=== PATIENT | female | born 1995 | race African-American/Black ===

== ENCOUNTER 2018-06-20 19:56 | Emergency (ER) | payer MEDICAID ==
--- NOTE | 2018-06-20 20:35 | ED Physician Chart ---
ED Chief Complaint/HPI - Patient Information Date Seen:: 06/20/18 Time Seen:: 20:15 Chief Complaint:: scalp lesions History of Present Illness:: Patient's had tender, painful scalp for the last 1 week. Last night the left parietal scalp was bleeding. She's had a pounding headache since yesterday. Patient has been using Stallion shampoo for the last 1 year. Allergies:: Allergies Allergy/AdvReac Type Severity Reaction Status Date / Time No Known Allergies Allergy Verified 06/20/18 20:17 Vitals:: Vital Signs - 8 hr 06/20/18 20:17 Temp 98.3 F HR 99 RR 18 BP 136/80 O2 Sat % 97 Historian:: Patient Review:: Nurse's Note Reviewed ED Review of Systems - Review of Systems General/Constitutional: No fever, No chills Skin: Skin lesions Head: No headache Eyes: No loss of vision ENT: No earache Neck: No neck pain Cardio Vascular: No chest pain, No palpitations Pulmonary: No SOB GI: No nausea, No vomiting, No diarrhea G/U: No dysuria Musculoskeletal: No bone or joint pain Endocrine: No polyuria Psychiatric: No prior psych history Hematopoietic: No bruising Allergic/Immuno: No urticaria Neurological: No syncope ED Past Medical History - Past Medical History Past Medical History: No significant medical hx Family History: None Social History: Non Smoker, No Alcohol Surgical History: other (fingers right hand for syndactyly) Psychiatricy History: None Medication: None ED Physical Exam - Physical Examination General/Constitutional: Well-developed, well-nourished, Alert, No distress Other Head comments:: Left parietal scalp with some flaking of the skin and a few tender red few millimeters in diameter superficial areas of the scalp. Eyes: Lids, conjuctiva normal, PERRL Other Skin comments:: See above under head ENMT: External ears, nose nl, TM canals nl Neck: No nuchal rigidity Respiratory: Nl effort/Exclusion, Clear to Auscultation Cardio Vascular: RRR, No murmur, gallop, rubs GI: No tenderness/rebounding/guarding, No organomegaly, No hernia Extremities: No edema Neuro/Psych: No focal deficits ED Assessment - Assessment General Assessment: The tender red areas of the scalp specifically noted in the left parietal area may be MRSA. Patient may also have seborrheic dermatitis since there were some superficial red tender areas. Suggested patient use Selsun Blue instead of her current stallion shampoo and will also prescribe Bactrim DS No. 20 to take 1 twice a day for MRSA. ED Septic Shock - . Is Septic Shock (SBP<90, OR Lactate>4 mmol\L) present?: No - <6hrs of presentation: Vital Signs: Vital Signs - 8 hr 06/20/18 20:17 Temp 98.3 F HR 99 RR 18 BP 136/80 O2 Sat % 97 ED Reassessment (Disposition) - Reassessment Reassessment Condition:: Unchanged - Diagnosis Diagnosis:: MRSA - Aftercare/Follow up Instructions Aftercare/Follow-Up Instructions:: Refer to Discharge Instructions - Patient Disposition Discharge/Transfer:: Home Condition at Disposition:: Stable, Unchanged
== END 2018-06-20 20:52 | disposition home or self-care (01) ==
LOC: ER 19:56
DX: A49.02 Methicillin resistant Staphylococcus aureus infection, unspecified site (principal)
CPT/HCPCS: Z7502